=== PATIENT | male | born 1995 | race Caucasian/White ===

== ENCOUNTER 2016-12-12 23:25 | Emergency (ER) | payer BC ==
[2016-12-13] MEDS ORDERED: DEXAMETHASONE SOD PHOS INJ 10 MG/1 ML VIAL IM ONE (04:25)
--- NOTE | 2016-12-13 04:32 | ER Document Report ---
ED ENT - General Chief Complaint: Sore Throat Stated Complaint: THROAT PAIN Time Seen by Provider: 12/13/16 04:20 Mode of Arrival: Ambulatory Information source: Patient TRAVEL OUTSIDE OF THE [place] IN LAST 30 DAYS: No - HPI Notes: 21-year-old male previously healthy exception of asthma presents with sore throat and fever for the last 3-4 days. Fever seemed to really start yesterday with chills as well. Denies cough. Has minimal post nasal drip but no runny nose otherwise. Denies abdominal pain, chest pain. Feels no chest congestion. No hematuria or dysuria. - Related Data Allergies/Adverse Reactions: No Known Drug Allergies Allergy (Verified 10/15/14 19:07) Past Medical History - General Information source: Patient - Social History Smoking Status: Never Smoker Family History: CAD, DM, Hyperlipidemia, Hypertension, Malignancy Patient has suicidal ideation: No Patient has homicidal ideation: No Pulmonary Medical History: Reports: Hx Asthma, Hx Pneumonia Renal/ Medical History: Denies: Hx Peritoneal Dialysis Psychiatric Medical History: Reports: Hx Attention Deficit Hyperactivity Disorder - Immunizations Immunizations up to date: Yes Hx Diphtheria, Pertussis, Tetanus Vaccination: Yes Review of Systems - Review of Systems -: Yes All other systems reviewed and negative Physical Exam - Vital signs Vitals: Temp Pulse Resp BP Pulse Ox 97.8 F 77 18 123/83 98 12/13/16 00:34 12/13/16 00:34 12/13/16 00:34 12/13/16 00:34 12/13/16 00:34 Interpretation: Normal - Notes Notes: GENERAL: VS as per nursing doc. Well-appearing, well-nourished and in no acute distress. HEAD: Atraumatic, normocephalic. EYES: Pupils equal round and reactive to light, extraocular movements intact, sclera anicteric, no conjunctival injection or discharge. ENT: Nares patent, pharynx is patent but there is enlargement of the tonsils which are erythematous with patchy exudate noted. Uvula is midline there is no evidence of abscess or involvement of the floor the mouth. NECK: Normal range of motion, supple greater than right tender anterior cervical nodes LUNGS: Breath sounds clear to auscultation bilaterally and equal. No wheezes rales or rhonchi. HEART: Regular rate and rhythm without murmurs. ABDOMEN: Soft, non-tender, no left upper quadrant tenderness or splenomegaly. BACK: No CVA tenderness. EXTREMITIES: No edema. NEUROLOGICAL: Normal speech. Gross neurologic deficit and no meningeal signs PSYCH: Normal mood, normal affect. SKIN: Warm, dry, No petechiae. Course - Re-evaluation Re-evalutation: 12/13/16 04:32 I discussed with the patient evaluation including strep and mono testing. At this point he would prefer treatment which seems reasonable as he has fairly classic signs of strep with no other URI symptoms, positive exudate, positive tender adenopathy and fever. - Vital Signs Vital signs: Temp Pulse Resp BP Pulse Ox 97.8 F 77 18 123/83 98 12/13/16 00:34 12/13/16 00:34 12/13/16 00:34 12/13/16 00:34 12/13/16 00:34 Discharge - Discharge Clinical Impression: Exudative pharyngitis Condition: Good Disposition: HOME, SELF-CARE Instructions: Sore Throat ([facility]) Additional Instructions: Use ibuprofen or Aleve for discomfort. You can also still use Tylenol for pain and fever. Contact a primary care physician for follow-up. Prescriptions: Amoxicillin 500 mg PO TID #300 ml Forms: Special Work Note Referrals: [facility] [Provider Group] - Follow up in 3-5 days
[2016-12-13 05:08] VITALS: BP 118/69
== END 2016-12-13 05:25 | disposition home or self-care (01) ==
LOC: ER 23:25
DX: J02.9 Acute pharyngitis, unspecified (principal); R50.9 Fever, unspecified; R09.82 Postnasal drip
CPT/HCPCS: 99282; 96372; J1100